=== PATIENT | female | born 1980 | race American Indian/Alaskan Native ===

== ENCOUNTER 2020-07-20 09:27 | Emergency (ER) | payer SELFPAY ==
[2020-07-20 09:33] VITALS: BP 135/82
[2020-07-20] MEDS ORDERED: ASPIRIN 325 MG TAB PO ONE (09:36)
--- NOTE | 2020-07-20 10:15 | XRay Report ---
XR chest 1V ap INDICATION / CLINICAL INFORMATION: Chest Pain. COMPARISON: None available. FINDINGS: SUPPORT DEVICES: None. HEART / MEDIASTINUM: No significant abnormality. LUNGS / PLEURA: No significant pulmonary or pleural abnormality. No pneumothorax. ADDITIONAL FINDINGS: No significant additional findings. IMPRESSION: 1. No acute findings. Signer Name: Jesus Gurrola MD Signed: 07/20/2020 10:10 AM Workstation Name: [id number]
[2020-07-20 10:59] LABS: Basophils % (Auto) 0.5 % (0.0-1.8); Eosinophils # (Auto) 0.1 K/mm3 (0.0-0.4); Eosinophils % (Auto) 0.9 % (0.0-4.3); Hematocrit 37.6 % (30.3-42.9); Hemoglobin 12.9 gm/dl (10.1-14.3); Lymphocytes # (Auto) 2.5 K/mm3 (1.2-5.4); Lymphocytes % (Auto) 28.2 % (13.4-35.0); Mean Corpuscular HGB Conc 34 % (30-34); Mean Corpuscular Volume 93 fl (79-97); Monocytes # (Auto) 0.6 K/mm3 (0.0-0.8); Monocytes % (Auto) 6.5 % (0.0-7.3); Platelet Count 262 K/mm3 (140-440); Red Blood Count 4.06 M/mm3 (3.65-5.03); Red Cell Distribution Width 13.2 % (13.2-15.2)
[2020-07-20 11:17] LABS: Blood Urea Nitrogen 13 mg/dL (7-17); Calcium 9.1 mg/dL (8.4-10.2); Hemolysis Index 5
[2020-07-20 11:18] LABS: BUN/Creatinine Ratio 33
[2020-07-20] MEDS ORDERED: ASPIRIN 325 MG TAB ONE (13:15)
[2020-07-20] MEDS ORDERED: IPRATROPIUM/ALBUTEROL SULFATE 3 ML AMPUL.NEB IH ONE (13:55)
[2020-07-20] MEDS ORDERED: ACETAMINOPHEN 325 MG TAB PO ONE (13:55)
--- NOTE | 2020-07-20 13:57 | Emergency Department Report ---
- General Chief Complaint: Chest Pain Stated Complaint: CHEST PAIN Time Seen by Provider: 07/20/20 13:27 Source: patient Mode of arrival: Ambulatory Limitations: No Limitations - History of Present Illness Initial Comments: 39-year-old female with a past medical history of diabetes and asthma presents to the ER today complaining of URI/asthma type symptoms. Patient states that rosi smith woke up this morning with a mild dry cough. 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 She states that she did take 1 puff of her albuterol inhaler, which did not seem to improve her symptoms and so decided come to the ER. Patient states that since she been waiting in the ER she has since developed a sore throat, headache, avoids has been getting hoarse, and burning sensation in her chest. She denies any rhinorrhea, nasal congestion, fever or chills. She reports no wheezing. Patient states that there is a coworker who she works next to who is currently waiting for her COVID-19 test, but as of now denies any known COVID-19 contacts. She denies any other ill contacts. She denies any recent travel. She denies any heart disease, history of DVT or PE or any other significant past medical history at this time. MD Complaint: cough, other (Shortness of breath, chest tightness) -: This morning - Related Data Previous Rx's Medication Instructions Recorded Last Taken Type ALBUTEROL NEB's [Proventil 0.083% 2.5 mg IH QID PRN #30 neb 07/20/20 Unknown Rx NEBS] Loratadine 10 mg PO DAILY #30 capsule 07/20/20 Unknown Rx predniSONE [Deltasone] 50 mg PO QDAY #5 tab 07/20/20 Unknown Rx Allergies Allergy/AdvReac Type Severity Reaction Status Date / Time brompheniramine maleate Allergy Hives Verified 02/13/16 16:07 [From Dimetapp (brompheniramine-PPA)] latex Allergy Hives Verified 02/13/16 16:07 phenylpropanolamine HCl Allergy Hives Verified 02/13/16 16:07 [From Dimetapp (brompheniramine-PPA)] ED Review of Systems ROS: Stated complaint: CHEST PAIN Other details as noted in HPI Comment: All other systems reviewed and negative Constitutional: denies: chills, fever ENT: denies: ear pain, throat pain Respiratory: cough, shortness of breath. denies: wheezing Cardiovascular: chest pain (Chest tightness) Genitourinary: denies: urgency, dysuria, discharge Musculoskeletal: denies: back pain, joint swelling, arthralgia Skin: denies: rash, lesions Neurological: denies: headache, weakness, paresthesias Psychiatric: denies: anxiety, depression Hematological/Lymphatic: denies: easy bleeding, easy bruising ED Past Medical Hx - Past Medical History Previous Medical History?: Yes Hx Diabetes: Yes Hx Asthma: Yes Additional medical history: Eczema - Surgical History Additional Surgical History: hemmoroid, d&c x3, fissure removal - Social History Smoking Status: Former Smoker Substance Use Type: None - Medications Home Medications: Home Medications Medication Instructions Recorded Confirmed Last Taken Type ALBUTEROL NEB's [Proventil 0.083% 2.5 mg IH QID PRN #30 neb 07/20/20 Unknown Rx NEBS] Loratadine 10 mg PO DAILY #30 capsule 07/20/20 Unknown Rx predniSONE [Deltasone] 50 mg PO QDAY #5 tab 07/20/20 Unknown Rx ED Physical Exam - General Limitations: No Limitations General appearance: alert, in no apparent distress - Head Head exam: Present: atraumatic, normocephalic, normal inspection - Eye Eye exam: Present: normal appearance, PERRL, EOMI Pupils: Present: normal accommodation - ENT ENT exam: Present: normal exam, mucous membranes moist, other (Tonsils and posterior pharynx mildly erythematous, but no tonsillar swelling or exudates noted.) - Neck Neck exam: Present: normal inspection, full ROM, lymphadenopathy (Anterior cervical lymphadenopathy noted). Absent: tenderness, meningismus, thyromegaly - Respiratory Respiratory exam: Present: normal lung sounds bilaterally. Absent: respiratory distress - Cardiovascular Cardiovascular Exam: Present: regular rate, normal rhythm, normal heart sounds - Extremities Exam Extremities exam: Present: normal inspection, full ROM. Absent: tenderness, pedal edema, calf tenderness - Neurological Exam Neurological exam: Present: alert, oriented X3, CN II-XII intact, normal gait - Psychiatric Psychiatric exam: Present: normal affect, normal mood - Skin Skin exam: Present: intact ED Course Vital Signs 11/09/20 11/09/20 09:31 15:09 Temperature 98.0 F Pulse Rate 102 H Pulse Rate [ 101 H Anterior Bilateral Throughout] Respiratory 18 Rate Respiratory 19 Rate [Anterior Bilateral Throughout] Blood Pressure 135/82 O2 Sat by Pulse 100 Oximetry ED Medical Decision Making - Lab Data Result diagrams: 07/20/20 10:40 07/20/20 10:40 - EKG Data EKG shows normal: sinus rhythm Rate: normal (91) - EKG Data Interpretation: normal EKG - Radiology Data Radiology results: report reviewed - Medical Decision Making 1515 --39-year-old female with a past medical history of diabetes and asthma presents to the ER today complaining of URI/asthma type symptoms. Patient is currently resting comfortably, she is alert and is in no distress. Patient obs erved walking around the ER without any distress. Her vital signs have been stable throughout her stay. Chest x-ray reviewed shows nothing acute. Labs including EKG normal. Troponin also normal. The patient appears well, she does not appear dehydrated, she is in no respiratory distress and there is no signs of systemic toxicity. Patient history, exam, diagnostic testing and current condition does not demonstrate any infectious process such as meningitis, severe pneumonia, peritonsillar abscess, epiglottitis, retropharyngeal abscess, sepsis, acute coronary syndrome, PE or any other significant pathology requiring further testing, treatment, consultation or admission at this time. Discussed lab results, including chest x-ray results, EKG results with patient. This time I suspect her symptoms are related to upper respiratory infection/asthma. I do recommend that she follows up for outpatient COVID-19 testing. Patient will be given a prescription for albuterol nebs, as she does h ave a machine at home but no medication for it. She can continue her albuterol MDI inhaler. She is instructed to use her nebulizers or her inhaler every 4 hours as needed. She will also be prescribed prednisone which she states she is taken before. She is on insulin for her diabetes and has taken steroid and then sliding scale before. Discussed worsening signs and symptoms with patient and recommend that she returns if those signs develop. Otherwise she is to follow- up with her primary care doctor. Patient stable at this time for discharge. Critical care attestation.: If time is entered above; I have spent that time in minutes in the direct care of this critically ill patient, excluding procedure time. ED Disposition Clinical Impression: Upper respiratory infection, Asthmatic bronchitis Disposition: DC-01 TO HOME OR SELFCARE Is pt being admited?: No Does the pt Need Aspirin: No Condition: Stable Instructions: Asthma, Adult, Viral Respiratory Infection, [id number], Acute Bronchitis, Adult, Chronic Bronchitis (ED) Additional Instructions: You can do the nebulizer treatment every 4 hours as needed when at home. You can use your albuterol MDI when you are out. Take the prednisone as prescribed, monitor your blood sugar closely while taking the prednisone, and will use sliding scale insulin as needed depending on your blood sugar readings. Take the loratadine as prescribed. I do recommend that you follow-up with local urgent care, [facility] drive-through, [facility] office or local health department for outpatient COVID-19 testing. You should quarantine at home until you get your test results back. If it is positive you will need to quarantine for 14 days. If your symptoms changes or worsens in any way return immediately to the ER. Prescriptions: predniSONE [Deltasone] 50 mg PO QDAY #5 tab Loratadine 10 mg PO DAILY #30 capsule ALBUTEROL NEB's [Proventil 0.083% NEBS] 2.5 mg IH QID PRN #30 neb PRN Reason: Wheezing Referrals: JASMINA CRESPO MD [Primary Care Provider] - 3-5 Days Forms: Work/School Release Form(ED) Time of Disposition: 15:05
== END 2020-07-20 15:27 | disposition home or self-care (01) ==
LOC: ED 09:27
DX: J44.9 Chronic obstructive pulmonary disease, unspecified (principal); J06.9 Acute upper respiratory infection, unspecified; E11.9 Type 2 diabetes mellitus without complications; Z87.891 Personal history of nicotine dependence; Z88.1 Allergy status to other antibiotic agents; Z88.6 Allergy status to analgesic agent
CPT/HCPCS: 36415; 71045; 80048; 84484; 85025; 93005; 94644